=== PATIENT | female | born 1935 | race Caucasian/White ===

== ENCOUNTER 2020-08-10 23:36 | Emergency (ER) | payer OTHER, MEDICARE ==
[~2020-08-10] VITALS: Ht 160 cm; Wt 68.0 kg
[2020-08-11 01:30] VITALS: BP 170/72
== END 2020-08-11 02:30 | disposition home or self-care (01) ==
LOC: ER 23:36
DX: G89.29 Other chronic pain (principal); R06.00 Dyspnea, unspecified; M19.90 Unspecified osteoarthritis, unspecified site; Z98.51 Tubal ligation status; Z90.49 Acquired absence of other specified parts of digestive tract; Z98.890 Other specified postprocedural states; Z91.041 Radiographic dye allergy status